=== PATIENT | male | born 1970 | race Caucasian/White ===

== ENCOUNTER 2022-05-09 09:41 | Emergency (ER) | payer BC, OTHER ==
[~2022-05-09] VITALS: Ht 175.3 cm; Wt 83.9 kg
[~2022-05-09 09:41] MED LIST: CEPH250C16 PO; TRAM-748 PO
[2022-05-09 09:46] VITALS: BP 157/102
--- NOTE | 2022-05-09 09:58 | NUR ---
PATIENT PRESENTS TO ED WITH LEFT SIDE HEADACHE S/P GROUND LEVEL FALL IN THE BATHROOM . PT STATES HE HAD LOC BUT CANNOT RECALL THE LENGTH OF TIME. DENIES N/V/D; SKIN IS PINK/WARM/DRY; AAOX4 WITH EVEN AND STEADY GAIT; LUNGS CLEAR BL; HR EVEN AND REGULAR; PT DENIES ANY FEVER, CP, SOB, OR COUGH AT THIS TIME; PATIENT STATES PAIN OF 0/10 AT THIS TIME; VSS; PATIENT POSITIONED FOR COMFORT; HOB ELEVATED; BEDRAILS UP X2; BED DOWN. ER MD MADE AWARE OF PT STATUS.
[2022-05-09 11:08] VITALS: BP 149/95
--- NOTE | 2022-05-09 11:09 | NUR ---
Patient discharged with v/s stable. Written and verbal after care instructions given and explained. Patient verbalized understanding. Ambulatory with steady gait. All questions addressed prior to discharge. Advised to follow up with PMD.
== END 2022-05-09 11:08 | disposition home or self-care (01) ==
LOC: MED 09:41
DX: S01.01XA Laceration without foreign body of scalp, initial encounter (principal); S43.402A Unspecified sprain of left shoulder joint, initial encounter; M25.552 Pain in left hip; W18.30XA Fall on same level, unspecified, initial encounter; Y93.89 Activity, other specified; Y92.89 Other specified places as the place of occurrence of the external cause; Y99.8 Other external cause status
CPT/HCPCS: 73030; 99283; Q0092